=== PATIENT | male | born 1995 | race American Indian/Alaskan Native ===

== ENCOUNTER 2017-09-27 19:02 | Emergency (ER) | payer OTHER ==
[2017-09-27 20:35] LABS: Bilirubin,Urine MOD (Negative); Blood,Urine NEG (Negative); Color,Urine Amber (Yellow); Mucus,Urine 3+ /HPF; Nitrite,Urine NEG (Negative)
[2017-09-27 20:44] LABS: Ictotest,Urine Negative (Negative)
[2017-09-27] MEDS ORDERED: NACL 0.9% 1000 ML 1,000 ML IV ONE (23:49)
[2017-09-27] MEDS ORDERED: ZOFRAN IV ONE (23:49)
--- NOTE | 2017-09-27 23:55 | Emergency Department Report ---
HPI - General Chief Complaint: Upper Respiratory Infection Time Seen by Provider: 09/27/17 23:15 - HPI HPI: This is a 22-year-old male presents to ED with his mother complaining of generalized body aches, chills and vomiting 2 days. Patient states he had 4 episodes of vomiting yesterday, none today. Patient states he has denies eating any foods out of the ordinary. 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 He denies fever/chills/abdominal pain, chest pain, shortness of breath, dizziness or headache, diarrhea or constipation. ED Past Medical Hx - Past Medical History Previous Medical History?: No - Surgical History Past Surgical History?: No - Social History Smoking Status: Never Smoker Substance Use Type: None - Medications Home Medications: Home Medications Medication Instructions Recorded Confirmed Last Taken Type methOCARBAMOL [Robaxin TAB] 500 mg PO BID #15 tab 06/19/16 Unknown Rx D-Methorphan/PE/Acetaminophen 1 each PO Q6H #30 tablet 09/28/17 Unknown Rx [Tylenol Cold Multi-Symp Caplet] Ibuprofen [Motrin 600 MG tab] 600 mg PO Q8H PRN #30 tablet 09/28/17 Unknown Rx Ondansetron [Zofran Odt] 4 mg PO Q8H #20 tab.rapdis 09/28/17 Unknown Rx ED Review of Systems ROS: Stated complaint: FLU Other details as noted in HPI Constitutional: chills, malaise. denies: fever Eyes: denies: eye pain, eye discharge, vision change ENT: denies: ear pain, throat pain Respiratory: denies: cough, shortness of breath, wheezing Cardiovascular: denies: chest pain, palpitations Endocrine: no symptoms reported Gastrointestinal: vomiting. denies: abdominal pain, nausea, diarrhea Genitourinary: denies: urgency, dysuria Musculoskeletal: denies: back pain, joint swelling, arthralgia Skin: denies: rash, lesions Neurological: denies: headache, weakness, paresthesias Psychiatric: denies: anxiety, depression Hematological/Lymphatic: denies: easy bleeding, easy bruising Physical Exam - Physical Exam Vital Signs: Vital Signs 09/27/17 19:26 Temperature 98.7 F Pulse Rate 76 Blood Pressure 150/105 O2 Sat by Pulse 98 Oximetry Physical Exam: GENERAL: Alert and oriented x3, no apparent distress, Normal Gait, atraumatic. EARS: symetrical, atraumatic, non tender, ear canal clear and moderate cerumen, tympanic membrance non inflamed. gross auditory nml bilaterally. NOSE: Nose symetrical, Nontender,Nares appeared normal. MOUTH:Mouth is well hydrated and without lesions. Tonsils nonerythematous or swollen, Uvula midline, Tongue not elevated. Mucous membranes are moist. Posterior pharynx clear, no exudate or lesions. Patent airways. NECK: Supple. Non edematous. No lymphadenopathy or thyromegaly. No C-spine tenderness LUNGS: Symetrical with respiration, No wheezing, no rales or crackles, CTAB. HEART: S1, S2 present, regular rate and rhythm without murmur, no rubs, no gallops. Non tender to palpation ABDOMEN: No organomegaly was noted,Positive bowel sounds, soft, and non- distended. Nontender to palpation on all Quadrants, NO CVA tenderness. EXTREMITIES/MUSCULOSKELETAL: No cyanosis, clubbing, rash, lesions or edema. Full ROM bilaterally. UE/LE Pulses 2+ bilaterally. LE and UE 5+ strength bilaterally, straight leg raise negative bilaterally NEUROLOGIC: The patient is cooperative with no focal neurologic deficits. C. Normal speech. Normal sensation in bilateral upper and lower extremities, No loss of sensation, SKIN: Warm and dry, No lesions, No ulceration or induration present. ED Course Vital Signs 09/27/17 19:26 Temperature 98.7 F Pulse Rate 76 Blood Pressure 150/105 O2 Sat by Pulse 98 Oximetry - Reevaluation(s) Reevaluation #1: Patient reports feeling better. He is sleeping comfortably in room Appears stable, no respiratory or acute distress.. 09/28/17 02:07 ED Medical Decision Making - Lab Data Result diagrams: 09/27/17 23:56 09/27/17 23:56 Laboratory Last Values WBC 17.1 K/mm3 (4.5-11.0) H 09/27/17 23:56 RBC 5.29 M/mm3 (3.65-5.03) H 09/27/17 23:56 Hgb 15.6 gm/dl (11.8-15.2) H 09/27/17 23:56 Hct 47.5 % (35.5-45.6) H 09/27/17 23:56 MCV 90 fl (84-94) 09/27/17 23:56 MCH 30 pg (28-32) 09/27/17 23:56 MCHC 33 % (32-34) 09/27/17 23:56 RDW 13.0 % (13.2-15.2) L 09/27/17 23:56 Plt Count 345 K/mm3 (140-440) 09/27/17 23:56 Lymph % (Auto) 7.2 % (13.4-35.0) L 09/27/17 23:56 [place] % (Auto) 7.2 % (0.0-7.3) 09/27/17 23:56 Eos % (Auto) 0.1 % (0.0-4.3) 09/27/17 23:56 Baso % (Auto) 0.2 % (0.0-1.8) 09/27/17 23:56 Lymph # 1.2 K/mm3 (1.2-5.4) 09/27/17 23:56 [place] # 1.2 K/mm3 (0.0-0.8) H 09/27/17 23:56 Eos # 0.0 K/mm3 (0.0-0.4) 09/27/17 23:56 Baso # 0.0 K/mm3 (0.0-0.1) 09/27/17 23:56 Seg Neutrophils % 85.3 % (40.0-70.0) H 09/27/17 23:56 Seg Neutrophils # 14.6 K/mm3 (1.8-7.7) H 09/27/17 23:56 Sodium 138 mmol/L (137-145) 09/27/17 23:56 Potassium 3.9 mmol/L (3.6-5.0) 09/27/17 23:56 Chloride 95.0 mmol/L (98-107) L 09/27/17 23:56 Carbon Dioxide 27 mmol/L (22-30) 09/27/17 23:56 Anion Gap 20 mmol/L 09/27/17 23:56 BUN 8 mg/dL (9-20) L 09/27/17 23:56 Creatinine 0.7 mg/dL (0.8-1.5) L 09/27/17 23:56 Estimated GFR > 60 ml/min 09/27/17 23:56 BUN/Creatinine Ratio 11 % 09/27/17 23:56 Glucose 110 mg/dL (75-100) H 09/27/17 23:56 Calcium 9.3 mg/dL (8.4-10.2) 09/27/17 23:56 Urine Color [place] (Yellow) 09/27/17 19:49 Urine Turbidity Clear (Clear) 09/27/17 19:49 Urine pH 5.0 (5.0-7.0) 09/27/17 19:49 Ur Specific [place] 1.060 (1.003-1.030) H 09/27/17 19:49 Urine Protein 100 mg/dl mg/dL (Negative) 09/27/17 19:49 Urine Glucose (UA) Neg mg/dL (Negative) 09/27/17 19:49 Urine Ketones Tr mg/dL (Negative) 09/27/17 19:49 Urine Blood Neg (Negative) 09/27/17 19:49 Urine Nitrite Neg (Negative) 09/27/17 19:49 Urine Bilirubin Mod (Negative) 09/27/17 19:49 Urine Ictotest Negative (Negative) 09/27/17 19:49 Urine Urobilinogen 2.0 mg/dL (<2.0) 09/27/17 19:49 Ur Leukocyte Esterase Neg (Negative) 09/27/17 19:49 Urine WBC (Auto) 7.0 /HPF (0.0-6.0) H 09/27/17 19:49 Urine RBC (Auto) 3.0 /HPF (0.0-6.0) 09/27/17 19:49 Urine Mucus 3+ /HPF 09/27/17 19:49 - Radiology Data Radiology results: report reviewed, image reviewed FINAL REPORT EXAM: XRAY CHEST 2 VIEWS HISTORY: FEVER CHILLS COMPARISON: None available. FINDINGS:: Frontal and lateral views of the chest obtained. Cardiac silhouette is within normal limits. No focal consolidation or effusion. No pneumothorax. Visualized bony thorax is grossly intact. IMPRESSION:: No acute findings. Transcribed By: LMA Dictated By: ROGELIO THOMAS MD Electronically Authenticated By: ROGELIO THOMAS MD Signed Date/Time: 09/27/172018 - Medical Decision Making 22 year-old male presents with flulike symptoms. ED course: CBC, BMP, lactic acid, chest x-ray all ordered. CBC shows elevated white count, BMP shows low BUN/creatinine. Chest x-ray normal findings. lactic acid wnl Patient received 1 L of fluids, Motrin, Zofran and ED no fever during the ED stay. Discussed with pt symptomatic relief with [id number] medications. Discussed continue Tylenol and Motrin as needed for fever and pain. Discussed increase fluids and diet intake. Discussed rest much needed. Discussed daily vitamin C for immune booster. Discussed follow-up with pcp in 3-5 days. Discussed the patient is symptoms worsen or new symptoms arise to return to ED immediately Patient and mother verbally states understands and will comply the following instructions and follow-up Vital signs stable. Patient is in no acute distress Critical care attestation.: If time is entered above; I have spent that time in minutes in the direct care of this critically ill patient, excluding procedure time. ED Disposition Clinical Impression: Viral syndrome Disposition: DC- TO HOME OR SELFCARE Is pt being admited?: No Does the pt Need Aspirin: No Condition: Stable Instructions: Dehydration in Children (ED), Viral Syndrome (ED), Acute Nausea and Vomiting (ED) Additional Instructions: Make sure to follow up with the primary care physician as discussed. Take all your medications as you've been prescribed. If you have any worsening symptoms or develop new symptoms please return to ED immediately. Prescriptions: D-Methorphan/PE/Acetaminophen [Tylenol Cold Multi-Symp Caplet] 1 each PO Q6H # 30 tablet Ibuprofen [Motrin 600 MG tab] 600 mg PO Q8H PRN #30 tablet PRN Reason: Pain Ondansetron [Zofran Odt] 4 mg PO Q8H #20 tab.rapdis Referrals: PRIMARY CARE, [Primary Care Provider] - 3-5 Days [facility] [Outside] - 3-5 Days [facility] [Outside] - 3-5 Days [facility] [Outside] - 3-5 Days [facility] [Outside] - 3-5 Days Forms: Accompanied Note, Work/School Release Form(ED) Time of Disposition: 02:24
[2017-09-28 00:14] LABS: Basophils % (Auto) 0.2 % (0.0-1.8); Eosinophils % (Auto) 0.1 % (0.0-4.3); Hematocrit 47.5 % (35.5-45.6); Hemoglobin 15.6 gm/dl (11.8-15.2); Lymphocytes # (Auto) 1.2 K/mm3 (1.2-5.4); Lymphocytes % (Auto) 7.2 % (13.4-35.0); Mean Corpuscular HGB Conc 33 % (32-34); Mean Corpuscular Hemoglobin 30 pg (28-32); Mean Corpuscular Volume 90 fl (84-94); Monocytes # (Auto) 1.2 K/mm3 (0.0-0.8); Monocytes % (Auto) 7.2 % (0.0-7.3); Platelet Count 345 K/mm3 (140-440); Red Blood Count 5.29 M/mm3 (3.65-5.03)
--- NOTE | 2017-09-28 00:29 | XRay Report ---
FINAL REPORT EXAM: XRAY CHEST 2 VIEWS HISTORY: FEVER CHILLS COMPARISON: None available. FINDINGS:: Frontal and lateral views of the chest obtained. Cardiac silhouette is within normal limits. No focal consolidation or effusion. No pneumothorax. Visualized bony thorax is grossly intact. IMPRESSION:: No acute findings.
[2017-09-28 00:38] LABS: BUN/Creatinine Ratio 11; Blood Urea Nitrogen 8 mg/dL (9-20); Calcium 9.3 mg/dL (8.4-10.2); Hemolysis Index 19
[2017-09-28] MEDS ORDERED: MOTRIN PO ONE (01:04)
[2017-09-28 02:45] VITALS: BP 121/84
== END 2017-09-28 03:05 | disposition home or self-care (01) ==
LOC: ED 19:02
DX: B34.9 Viral infection, unspecified (principal)
CPT/HCPCS: 36415; 71046; 80048; 81001; 82140; 85025; 96361; 96374; 99284; J2405; J7030